=== PATIENT | male | born 1970 | race Caucasian/White ===

== ENCOUNTER 2023-10-14 23:18 | Emergency (ER) | payer OTHER, SELFPAY ==
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
[2023-10-14 23:24] VITALS: BP 130/81; PULSE 81; RESP 15; TEMP 36.7; O2SAT 95
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
[2023-10-14] MEDS: MORPHINE SULFATE (*CRX) 4 MG/ML INJ IV PUSH (23:46)
[2023-10-14] MEDS: ONDANSETRON INJ 4 MG/2 ML VIAL IV PUSH (23:46)
[2023-10-14] MEDS: SODIUM CHLORIDE 0.9% IV 1,000 ML 999 ML IV CONT (23:47)
--- NOTE | 2023-10-15 00:01 | PC.NURSE ---
report called to [facility] and this rn spoke to rox elias RN. no further questions. consent obtained for transfer.
[2023-10-15 00:03] LABS: Ethanol < 10 mg/dL (<10)
[2023-10-15 00:09] LABS: Basophils Percent Auto 0.2 % (0.2-1.2); Hematocrit 47.9 % (42.0-52.0); Hemoglobin 16.4 g/dL (14.0-18.0); Immature Granulocyte Absolute 0.11 K/mm3 (0.00-0.031); Immature Granulocyte Percent A 0.5 % (0-0.5); Lymphocytes Absolute Auto 1.52 K/mm3 (0.9-3.2); Lymphocytes Percent Auto 6.4 % (18.3-44.2); Mean Corpuscular HGB Conc 34.2 g/dl (32-36); Mean Corpuscular Hemoglobin 32.5 pg (26-34); Mean Platelet Volume 10.7 fl (7.4-10.4); Monocytes Absolute Auto 1.4 K/mm3 (0.1-0.6); Monocytes Percent Auto 5.7 % (2.6-8.5); Neutrophils Absolute Auto 20.7 K/mm3 (1.3-6.7); Neutrophils Percent Auto 87.2 % (45.5-73.1); Platelet Count Result 254 k/mm3 (150-375); Red Blood Count 5.04 M/mm3 (4.6-6.20); Red Cell Distribution Width 13.5 % (11.5-14.5); White Blood Count 23.8 K/mm3 (4.5-10.0)
[2023-10-15 00:13] LABS: Alanine Aminotransferase 39 U/L (6-50); Albumin Level 4.6 g/dL (3.5-5.1); Alkaline Phosphatase 115 U/L (38-126); Anion Gap 8 mmol/L (4-12); Aspartate Amino Transferase 48 U/L (17-59); Blood Urea Nitrogen 15 mg/dL (9-20); Calcium 9.6 mg/dL (8.4-10.2); Carbon Dioxide 23 mmol/L (22-30); Chloride 106 mmol/L (98-107); Estimated CRCL calculation 63 ml/min; Estimated Glomerular Filt Rate > 60; Glucose 124 mg/dL (65-110); Potassium 3.9 mmol/L (3.4-5.0); Sodium 137 mmol/L (137-145)
[2023-10-15 00:14] LABS: Prothrombin Time 13.2 Seconds (11.1-14.7)
[2023-10-15 00:25] VITALS: BP 150/79; PULSE 80; RESP 14; O2SAT 100
== END 2023-10-15 00:27 | disposition short-term general hospital (02) ==
LOC: ANHED 10-15 00:17
PROVIDERS: Emergency Provider Emergency Medicine
DX: T79.7XXA Traumatic subcutaneous emphysema, initial encounter (principal); F41.9 Anxiety disorder, unspecified; M19.90 Unspecified osteoarthritis, unspecified site; K21.9 Gastro-esophageal reflux disease without esophagitis; V28.09XA Other motorcycle driver injured in noncollision transport accident in nontraffic accident, initial encounter
CPT/HCPCS: 36415; 71045; 80053; 80307; 85025; 85610; 85730; 96361; 96374; 96375; 99285; J2270; J2405; J7030